=== PATIENT | female | born 1950 | race Hispanic/Latino ===

== ENCOUNTER 2018-01-12 10:13 | Outpatient (CLI) | payer MEDICARE, BC | END 2018-01-12 10:14 | disposition home or self-care (01) | LOC: BICMAMMO 10:13 | PROVIDERS: ATTEND Family Medicine | DX: Z12.31 Encounter for screening mammogram for malignant neoplasm of breast (principal) | CPT/HCPCS: 77063; 77067 ==

== ENCOUNTER 2019-01-13 10:32 | Outpatient (CLI) | payer BC, MEDICARE ==
--- NOTE | 2019-01-18 06:45 | MMO ---
Bilateral MAMMO Bilat Screen [facility]. CLINICAL HISTORY: Patient is 68 years old and is seen for screening. The patient has no family history of breast cancer. The patient has no personal history of cancer. VIEWS: The views performed were: bilateral craniocaudal with tomosynthesis and bilateral mediolateral oblique with tomosynthesis. FILMS COMPARED: The present examination has been compared to prior imaging studies performed at [facility] on 01/05/2015, 01/07/2016, 01/07/2017 and 01/12/2018. MAMMOGRAM FINDINGS: There are scattered fibroglandular densities. Finding 1: There are benign appearing and vascular calcifications seen in both breasts. Finding 2: There is an intramammary lymph node seen in the inner region of the left breast. There are no suspicious masses, suspicious calcifications, or new areas of architectural distortion. IMPRESSION: THERE IS NO MAMMOGRAPHIC EVIDENCE OF MALIGNANCY. A ROUTINE FOLLOW-UP MAMMOGRAM IN 1 YEAR IS RECOMMENDED. THE RESULTS OF THIS EXAM WERE SENT TO THE PATIENT. ACR BI-RADS Category 2 - Benign finding MAMMOGRAPHY NOTE: 1. A negative mammogram report should not delay a biopsy if a dominant of clinically suspicious mass is present. 2. Approximately 10% to 15% of breast cancers are not detected by mammography. 3. Adenosis and dense breasts may obscure an underlying neoplasm. Reported by: BRIDGETT VIERA MD Electonically Signed: [id number]
== END 2019-01-13 10:33 | disposition home or self-care (01) ==
LOC: BICMAMMO 10:32
PROVIDERS: ATTEND Family Medicine
DX: Z12.31 Encounter for screening mammogram for malignant neoplasm of breast (principal)
CPT/HCPCS: 77063; 77067

== ENCOUNTER 2019-06-22 09:54 | Outpatient (CLI) | payer BC, MEDICARE ==
--- NOTE | 2019-06-22 11:53 | BD ---
DEXA BONE DENSITY STUDY: Date: 06/22/2019 HISTORY: Osteoporosis screening. COMPARISON: None. FINDINGS: Lumbar Spine: BMD (g/cm2) L1 0.877 T-Score: -1.0 Z-Score: 0.7 L2 0.972 T-Score: -0.5 Z-Score: 1.4 L3 0.983 T-Score: -0.9 Z-Score: 1.1 L4 0.998 T-Score: -0.6 Z-Score: 1.5 L1-L4 0.961 T-Score: -0.8 Z-Score: 1.2 Right Femoral Neck: 0.642 T-Score: -1.9 Z-Score: -0.4 Total Right Hip: 0.823 T-Score: -1.0 Z-Score: 0.3 WHO Classification: Osteopenia. 10 Year Fracture Risk: Major osteoporotic fracture: 7.6% Hip fracture: 1.2% IMPRESSION: Osteopenia with fracture risk as above. POS: [facility]
== END 2019-06-22 09:55 | disposition home or self-care (01) ==
LOC: BICMAMMO 09:54
PROVIDERS: ATTEND Internal Medicine Rheumatology
DX: M81.0 Age-related osteoporosis without current pathological fracture (principal); M85.89 Other specified disorders of bone density and structure, multiple sites
CPT/HCPCS: 77080

== ENCOUNTER 2019-10-12 08:50 | Outpatient (CLI) | payer BC, MEDICARE ==
--- NOTE | 2019-10-12 09:30 | ULT ---
EXAM: US Hepatic Doppler PROVIDED CLINICAL HISTORY: Elevated LFTs COMPARISON: None FINDINGS: The visualized abdominal aorta, IVC and pancreas appear normal. The liver demonstrates no evidence for mass or intrahepatic biliary ductal dilatation. The common gita t is nondilated. Gallstones are demonstrated without evidence for wall thickening or pericholecystic fluid. The spleen is not enlarged and demonstrates no focal abnormality. Color Doppler and spectral analysis of the hepatic portal, hepatic venous, hepatic arterial, splenic venous and splenic arterial waveforms demonstrates appropriate direction of flow. IMPRESSION: 1. Normal hepatic Doppler. 2. Cholelithiasis.
== END 2019-10-12 08:51 | disposition home or self-care (01) ==
LOC: BICULT 08:50
PROVIDERS: ATTEND Internal Medicine Gastroenterology
DX: R94.5 Abnormal results of liver function studies (principal); K80.20 Calculus of gallbladder without cholecystitis without obstruction
CPT/HCPCS: 76705

== ENCOUNTER 2020-02-16 11:57 | Outpatient (CLI) | payer BC, MEDICARE ==
--- NOTE | 2020-02-16 12:52 | MMO ---
Bilateral MAMMO Bilat Screen [facility]. CLINICAL HISTORY: Patient is 69 years old and is seen for screening. The patient has no family history of breast cancer. The patient has no personal history of cancer. VIEWS: The views performed were: bilateral craniocaudal with tomosynthesis and bilateral mediolateral oblique with tomosynthesis. FILMS COMPARED: The present examination has been compared to prior imaging studies performed at [facility] on 01/07/2016, 01/07/2017, 01/12/2018 and 01/13/2019. This study has been interpreted with the assistance of computer-aided detection. MAMMOGRAM FINDINGS: There are scattered fibroglandular densities. There are vascular calcifications seen in both breasts. There are no suspicious masses, suspicious calcifications, or new areas of architectural distortion. IMPRESSION: A ROUTINE FOLLOW-UP MAMMOGRAM IN 1 YEAR IS RECOMMENDED. THE RESULTS OF THIS EXAM WERE SENT TO THE PATIENT. ACR BI-RADS Category 2 - Benign finding MAMMOGRAPHY NOTE: 1. A negative mammogram report should not delay a biopsy if a dominant of clinically suspicious mass is present. 2. Approximately 10% to 15% of breast cancers are not detected by mammography. 3. Adenosis and dense breasts may obscure an underlying neoplasm. Reported by: SAMIR CARLOS MD Electonically Signed: [id number]
== END 2020-02-16 11:58 | disposition home or self-care (01) ==
LOC: BICMAMMO 11:57
PROVIDERS: ATTEND Family Medicine
DX: Z12.31 Encounter for screening mammogram for malignant neoplasm of breast (principal)
CPT/HCPCS: 77063; 77067

== ENCOUNTER 2021-03-14 09:18 | Outpatient (CLI) | payer MEDICARE, BC | END 2021-03-14 09:19 | disposition home or self-care (01) | LOC: BICMAMMO 09:18 | PROVIDERS: ATTEND Family Medicine | DX: Z12.31 Encounter for screening mammogram for malignant neoplasm of breast (principal) | CPT/HCPCS: 77063; 77067 ==

== ENCOUNTER 2022-03-18 09:01 | Outpatient (CLI) | payer MEDICARE, BC | END 2022-03-18 09:02 | disposition home or self-care (01) | LOC: BICMAMMO 09:01 | PROVIDERS: ATTEND Family Medicine | DX: Z12.31 Encounter for screening mammogram for malignant neoplasm of breast (principal) | CPT/HCPCS: 77063; 77067 ==

== ENCOUNTER 2023-04-01 08:55 | Outpatient (CLI) | payer MEDICARE, BC | END 2023-04-01 08:56 | disposition home or self-care (01) | LOC: BICMAMMO 08:55 | PROVIDERS: ATTEND Family Medicine | DX: Z12.31 Encounter for screening mammogram for malignant neoplasm of breast (principal) | CPT/HCPCS: 77063; 77067 ==

== ENCOUNTER 2023-04-09 15:37 | Outpatient (CLI) | payer MEDICARE, BC | END 2023-04-09 15:38 | disposition home or self-care (01) | LOC: BICMAMMO 15:37 | PROVIDERS: ATTEND Family Medicine | DX: M85.89 Other specified disorders of bone density and structure, multiple sites (principal) | CPT/HCPCS: 77080 ==

== ENCOUNTER 2024-04-25 08:50 | Outpatient (CLI) | payer MEDICARE | END 2024-04-25 08:51 | disposition home or self-care (01) | LOC: BICMAMMO 08:50 | PROVIDERS: ATTEND Family Medicine | DX: Z12.31 Encounter for screening mammogram for malignant neoplasm of breast (principal) | CPT/HCPCS: 77063; 77067 ==

== ENCOUNTER 2025-05-01 10:35 | Outpatient (CLI) | payer MEDICARE | END 2025-05-01 10:36 | disposition home or self-care (01) | LOC: BICMAMMO 10:35 | PROVIDERS: ATTEND Family Medicine | DX: Z12.31 Encounter for screening mammogram for malignant neoplasm of breast (principal); N64.89 Other specified disorders of breast | CPT/HCPCS: 77063; 77067 ==